=== PATIENT | female | born 1975 | race Caucasian/White ===

== ENCOUNTER → 2018-10-30 | Outpatient (CLI) | payer OTHER | LOC: CAT 09:03 | DX: M16.11 Unilateral primary osteoarthritis, right hip (principal); M25.751 Osteophyte, right hip; M25.851 Other specified joint disorders, right hip ==

== ENCOUNTER 2018-11-25 05:32 | Day surgery (SDC) | payer OTHER ==
[~2018-11-25] VITALS: Ht 165.1 cm; Wt 53.1 kg
[~2018-11-25 05:32] MED LIST: NORFLEX100 MG PO; OMEPRAZOLE40 MG PO; RESTORIL30 MG PO; TRAMADOL 50 MG50 MG PO; XANAX1 MG PO
[2018-11-25 08:05] VITALS: BP 109/59
[2018-11-25 10:12] VITALS: BP 109/59
--- NOTE | 2018-11-26 09:31 | O ---
[address] [address] OPERATIVE REPORT Name: AURELIA HERNANDEZ Room #: DEP [facility]..#: [id number] Admission: 11/25/18 Attend Phys: Rashi Lara MD Discharge: 11/25/18 Date of : 79 Report #: [id number] THIS REPORT FOR: //name// CC: FAM unknown Rashi Lara DATE OF SERVICE: 11/25/2018 SERVICE: Orthopedics. FACILITY: [place]. SURGEON: Rashi Lara MD TRENCH DIGGER HELPER: Fiona Aguilera NP INDICATION: Extremity positioning, suture management, assistance with repair. PREOPERATIVE DIAGNOSES: 1. Right hip pain. 2. Right hip impingement. 3. Right hip labral tear. POSTOPERATIVE DIAGNOSES: 1. Right hip pain. 2. Right hip impingement. 3. Right hip labral tear. PROCEDURE: 1. Right hip arthroscopic labral repair. 2. Right hip arthroscopic extraarticular subspine acetabuloplasty. 3. Right hip arthroscopic Cam osteochondroplasty. COMPLICATIONS: None. DRAINS: None. SPECIMENS: None. ANESTHESIA: General with regional. FINDINGS: 1. A frayed labrum anteriorly as well as laterally and treated with debridement with the labral repair with [place] CinchLock suture anchor x 2. 2. Focal prominent subspine, which was the source of the crossover sign and small distal Cam deformity treated with resection. [address] [address] OPERATIVE REPORT Name: AURELIA HERNANDEZ Room #: DEP [facility]#: [id number] Admission: 11/25/18 Attend Phys: Rashi Lara MD Discharge: 11/25/18 Date of : 79 Report #: [id number] HISTORY: The patient is a 43-year-old female with a history of right hip pain since 11/2017. 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 She failed conservative measures, which included rest, physical therapy, activity modifications, injections and oral medications all without sufficient relief. She; therefore, elected to undergo definitive surgical treatment. Risks, benefits, alternatives and indication of the surgery discussed with her in detail. Risks include but not limited to pain, bleeding, infection, injury to nerves, blood vessels, persistent pain despite surgical intervention, failure of any repairs, reconstructions, progression of preexisting chondral injury, stiffness, need for further surgery as well as complications related to anesthesia such as stroke, heart attack, pulmonary complications, thromboembolic disease and . We discussed risk of chondral pathology complications as well in terms of long-term consequences for the hip. PROCEDURE IN DETAIL: After right lower extremity was correctly identified, the patient with placement of a single shot regional nerve blockade, she was then taken to the operating room where general anesthesia was induced without complication. She was padded appropriately. Prophylactic antibiotics were administered at appropriate time. Right hip femoral head and neck junction was mapped out under fluoroscopy. She was noted to have a distal Cam deformity at approximately the 20-50 degree range, which had a maximal alpha angle of approximately 57 or 58 degrees. The right hip was then prepped and draped in standard sterile fashion and a time-out procedure was performed. Standard traction was applied to the right lower extremity. Total traction time was 52 minutes. A standard anterolateral viewing portal was established followed by mid anterior portal and a transverse capsulotomy was performed. There was significant amount of erythema and capsulitis within the hip and synovitis and this was treated with debridement. The articular cartilage was intact on the femoral head and on the acetabulum, although there was some limited chondral labral junction injury. The majority of the pathology was rather frayed focal area of labral tearing anterior superiorly. The labrum was mobile in this area. The capsule was reflected off the dorsal side of the labrum allowing access to the acetabular rim and the anterior column subspine region adjacent to the anterior inferior iliac spine. The bur was used to perform a subspine recession, which addressed the extraarticular pincer component of her impingement and then the bur was used to abrade the acetabular rim to freshen it up for labral refixation. The first anchor was then placed just medial to the labral pathology with the cerclage suture, which provided good compression after the frayed edges were debrided with the cautery and shaver. A second anchor was placed more laterally, which provided good stable fixation as well. There was some undulation of the acetabular rim, which was unique to her particular anatomy, but there was no evidence of a chondral wave sign present during arthroscopy. The lateral portion of the labrum was frayed [address] [address] OPERATIVE REPORT Name: AURELIA HERNANDEZ Room #: DEP [facility] M.R.#: [id number] Admission: 11/25/18 Attend Phys: Rashi Lara MD Discharge: 11/25/18 Date of : 79 Report #: [id number] as well and this was treated with limited debridement and did not require any repair more laterally. Traction was let down and then the hip was flexed up. Attention was turned towards peripheral compartment. The transverse capsulotomy was extended down the neck in a T-shaped to allow access to the distal Cam deformity. Then, the bur was used to perform the Cam osteoplasty in typical fashion. Bony debris was lavaged. The C-arm was brought back and the instruments were removed from the hip. The Cam osteoplasty was assessed and found to be adequate. The instruments were then placed back in the hip. The bony debris was lavaged out of the hip and then the T-shaped capsulotomy was closed with a total of four #2 Vicryl sutures. Instruments were then removed. Portal sites closed and sterile dressing was applied. The patient was awakened from anesthesia and taken to the recovery room in stable condition. No complications. All counts were correct. <ELECTRONICALLY SIGNED> By: Rashi Lara MD 11/26/18 [id number] Rashi Lara MD /nt
== END 2018-11-25 13:45 | disposition home or self-care (01) ==
LOC: OR 05:32 → TBA 05:32 → OR 09:14
DX: S73.101A Unspecified sprain of right hip, initial encounter (principal); M25.851 Other specified joint disorders, right hip; F41.9 Anxiety disorder, unspecified; K21.9 Gastro-esophageal reflux disease without esophagitis; Z85.820 Personal history of malignant melanoma of skin; Z87.442 Personal history of urinary calculi; Z98.890 Other specified postprocedural states; Z79.899 Other long term (current) drug therapy; X58.XXXA Exposure to other specified factors, initial encounter; Y93.89 Activity, other specified; Y92.89 Other specified places as the place of occurrence of the external cause; Y99.8 Other external cause status
CPT/HCPCS: 50010; 50386; 51320; 51538; 52001; 52282; 56524; 56527; 57092; 65060